=== PATIENT | male | born 1985 | race Caucasian/White ===

== ENCOUNTER 2019-11-28 18:51 | Emergency (ER) | payer MEDICAID ==
[~2019-11-28] VITALS: Ht 167.6 cm; Wt 77.0 kg
[2019-11-28 18:55] VITALS: BP 143/74
== END 2019-11-28 20:34 | disposition home or self-care (01) ==
LOC: ER 18:51
DX: R09.89 Other specified symptoms and signs involving the circulatory and respiratory systems (principal)
CPT/HCPCS: 99283